=== PATIENT | female | born 1940 | race Native Hawaiian/Other Pacific Islander ===

== ENCOUNTER 2017-03-21 14:15 | Outpatient (CLI) | payer OTHER ==
[~2017-03-21 14:15] MED LIST: HYDROCHLOROT12.5 M1; HYDROCHLOROT12.5 M1 PO; LISI10TA11 PO; PRAVACHOL80 MG PO; RANI150T78 PO; Z-PAK PO
== END 2017-03-21 21:03 | disposition home or self-care (01) ==
LOC: LABW 14:15
DX: M81.0 Age-related osteoporosis without current pathological fracture (principal)
CPT/HCPCS: 36415; 82310

== ENCOUNTER 2017-03-25 14:04 | Outpatient (CLI) | payer OTHER ==
[~2017-03-25] VITALS: Ht 149.9 cm; Wt 68.0 kg
== END 2017-03-25 19:31 | disposition home or self-care (01) ==
LOC: INF 14:04
DX: M81.0 Age-related osteoporosis without current pathological fracture (principal)
CPT/HCPCS: 96372; J0897

== ENCOUNTER 2018-06-30 08:30 | Outpatient (CLI) | payer OTHER ==
[~2018-06-30] VITALS: Ht 149.9 cm; Wt 66.2 kg
[2018-06-30 08:44] VITALS: BP 122/82; TEMP 98.6
== END 2018-06-30 21:58 | disposition home or self-care (01) ==
LOC: INF 08:30
DX: M81.0 Age-related osteoporosis without current pathological fracture (principal)
CPT/HCPCS: 36415; 82310; 96372; J0897

== ENCOUNTER 2019-01-05 10:47 | Outpatient (CLI) | payer OTHER | END 2019-01-05 20:53 | disposition home or self-care (01) | LOC: LABW 10:47 | DX: Z79.01 Long term (current) use of anticoagulants (principal) | CPT/HCPCS: 36415; 85610 ==

== ENCOUNTER 2019-01-26 09:28 | Outpatient (CLI) | payer OTHER ==
[~2019-01-26] VITALS: Ht 149.9 cm; Wt 66.2 kg
[2019-01-26 09:58] VITALS: BP 127/74; TEMP 98
== END 2019-01-26 10:36 | disposition home or self-care (01) ==
LOC: LAB 09:28 → INF 09:28 → LABW 09:28 → INF 10:36
DX: M80.00XA Age-related osteoporosis with current pathological fracture, unspecified site, initial encounter for fracture (principal)
CPT/HCPCS: 36415; 82310; 96372; J0897

== ENCOUNTER 2019-08-13 08:22 | Outpatient (CLI) | payer OTHER | END 2019-08-13 21:48 | disposition home or self-care (01) | LOC: LABW 08:22 | DX: M81.0 Age-related osteoporosis without current pathological fracture (principal) | CPT/HCPCS: 36415; 82310 ==

== ENCOUNTER 2019-08-18 08:37 | Outpatient (CLI) | payer OTHER ==
[~2019-08-18] VITALS: Ht 149.9 cm; Wt 65.3 kg
[2019-08-18 08:40] VITALS: BP 127/67; TEMP 97.9
== END 2019-08-18 09:30 | disposition home or self-care (01) ==
LOC: INF 08:37
DX: M81.0 Age-related osteoporosis without current pathological fracture (principal)
CPT/HCPCS: 96372; J0897

== ENCOUNTER 2019-11-02 12:48 | Outpatient (CLI) | payer OTHER | END 2019-11-02 20:46 | disposition home or self-care (01) | LOC: LABW 12:48 | DX: R50.9 Fever, unspecified (principal) | CPT/HCPCS: 87502 ==

== ENCOUNTER 2020-02-10 10:09 | Outpatient (CLI) | payer OTHER | END 2020-02-10 22:30 | disposition home or self-care (01) | LOC: LABW 10:09 | DX: R50.9 Fever, unspecified (principal) | CPT/HCPCS: 87502 ==

== ENCOUNTER 2020-06-07 09:09 | Outpatient (CLI) | payer OTHER ==
[~2020-06-07] VITALS: Ht 149.9 cm; Wt 65.3 kg
[2020-06-07 09:40] VITALS: BP 129/66; TEMP 97.9
== END 2020-06-07 10:35 | disposition home or self-care (01) ==
LOC: INF 09:09
DX: M81.0 Age-related osteoporosis without current pathological fracture (principal)
CPT/HCPCS: 36415; 82310; 96372; J0897

== ENCOUNTER 2020-06-25 13:30 | Inpatient (IN) | payer OTHER ==
[~2020-06-25] VITALS: Ht 149.9 cm; Wt 66.9 kg
[2020-06-25 15:05] VITALS: BP 105/59; TEMP 99; Ht 149.9 cm; Wt 66.9 kg
[2020-06-25 15:44] LABS: PLATELET COUNT 165 K/uL (152-353)
[2020-06-25 15:48] LABS: POTASSIUM 3.8 mmol/L (3.6-5.2)
[2020-06-25 20:00] VITALS: BP 113/56; TEMP 99.3
[2020-06-25 22:00] VITALS: BP 113/56; TEMP 99.3
[2020-06-26] VITALS: BP 100/54; TEMP 98.5
[2020-06-26 04:00] VITALS: BP 83/62; TEMP 98.1
[2020-06-26 05:10] LABS: PLATELET COUNT 133 K/uL (152-353)
[2020-06-26 05:48] LABS: POTASSIUM 3.8 mmol/L (3.6-5.2)
[2020-06-26 08:00] VITALS: BP 117/56; TEMP 98.6
[2020-06-26 12:00] VITALS: BP 117/56; TEMP 98.2
[2020-06-26 16:00] VITALS: BP 98/52; TEMP 98.5
[2020-06-26 20:00] VITALS: BP 140/67; TEMP 98.7
[2020-06-27] VITALS (7 sets, daily range): BP systolic 98–135; BP diastolic 50–73; TEMP 97.9–99.7
[2020-06-27 05:27] LABS: PLATELET COUNT 131 K/uL (152-353)
[2020-06-27 06:02] LABS: POTASSIUM 3.6 mmol/L (3.6-5.2)
[2020-06-28 03:47] VITALS: BP 112/71; TEMP 98.1
[2020-06-28 06:49] LABS: PLATELET COUNT 119 K/uL (152-353)
[2020-06-28 07:06] LABS: POTASSIUM 3.7 mmol/L (3.6-5.2)
[2020-06-28 08:00] VITALS: BP 120/56; TEMP 98.1
[2020-06-28 12:00] VITALS: BP 100/58; TEMP 98.3
[2020-06-28] MEDS ORDERED: TRICOR145 M1 PO (12:01)
[2020-06-28] MEDS ORDERED: CARTIA XT120 MG PO (12:23)
[2020-06-28] MEDS ORDERED: METH5TAB6 PO (12:25)
[2020-06-28] MEDS ORDERED: JANTOVEN5 MG PO (12:27)
[2020-06-28 16:00] VITALS: BP 139/72; TEMP 97.7
[2020-06-28 20:00] VITALS: BP 129/59; TEMP 97.9
[2020-06-29 00:25] VITALS: BP 137/61; TEMP 97.7
[2020-06-29 03:57] VITALS: BP 140/68; TEMP 97.8
[2020-06-29 06:33] LABS: PLATELET COUNT 127 K/uL (152-353)
[2020-06-29 06:44] LABS: POTASSIUM 3.8 mmol/L (3.6-5.2)
[2020-06-29 07:52] VITALS: BP 131/54; TEMP 98.8
[2020-06-29 12:00] VITALS: BP 136/61; TEMP 98.7
[2020-06-29 16:00] VITALS: BP 126/75; TEMP 98.6
[2020-06-29 20:00] VITALS: BP 134/80; TEMP 98.1
[2020-06-30] VITALS (7 sets, daily range): BP systolic 127–149; BP diastolic 57–78; TEMP 98.1–99.1
[2020-06-30 05:36] LABS: POTASSIUM 4.2 mmol/L (3.6-5.2)
[2020-06-30 05:46] LABS: PLATELET COUNT 117 K/uL (152-353)
[2020-07-01 04:00] VITALS: BP 115/58; TEMP 98.8
[2020-07-01 05:13] LABS: POTASSIUM 4.1 mmol/L (3.6-5.2)
[2020-07-01 05:25] LABS: PLATELET COUNT 115 K/uL (152-353)
[2020-07-01 08:00] VITALS: BP 136/67; TEMP 98.5
[2020-07-01 12:00] VITALS: BP 127/61; TEMP 99.3
[2020-07-01 16:00] VITALS: BP 139/71; TEMP 99.2
== END 2020-07-01 18:08 | disposition home or self-care (01) | DRG 177 ==
LOC: MED/SURG 13:30
PROVIDERS: ADMIT Family Medicine
DX: U07.1 COVID-19 (principal); J18.8 Other pneumonia, unspecified organism; E86.0 Dehydration; R42 Dizziness and giddiness; I95.1 Orthostatic hypotension; Z79.01 Long term (current) use of anticoagulants; I10 Essential (primary) hypertension; E78.2 Mixed hyperlipidemia; E05.90 Thyrotoxicosis, unspecified without thyrotoxic crisis or storm; K21.9 Gastro-esophageal reflux disease without esophagitis; D64.89 Other specified anemias; E87.8 Other disorders of electrolyte and fluid balance, not elsewhere classified
CPT/HCPCS: 36415; 80053; 81000; 83735; 84100; 84436; 84443; 84481; 85027; 85379; 85610; 86140; 87040; 93005; 94667; 94668; 94760; J0456; J0610; J0696; J1885; J2405; J3475; J3480

== ENCOUNTER 2020-07-11 09:05 | Outpatient (CLI) | payer OTHER ==
[~2020-07-11 09:05] MED LIST changes: +CARTIA XT120 MG PO; +JANTOVEN5 MG PO; +METH5TAB6 PO; +TRICOR145 M1 PO
== END 2020-07-11 19:15 | disposition home or self-care (01) ==
LOC: LABW 09:05
DX: E05.80 Other thyrotoxicosis without thyrotoxic crisis or storm (principal); E04.1 Nontoxic single thyroid nodule; I10 Essential (primary) hypertension; E78.49 Other hyperlipidemia
CPT/HCPCS: 36415; 84439; 84443; 84445; 84480; 86376

== ENCOUNTER 2020-12-28 11:29 | Outpatient (CLI) | payer OTHER ==
[~2020-12-28] VITALS: Ht 149.9 cm; Wt 65.3 kg
[2020-12-28 12:55] VITALS: BP 133/58; TEMP 97.9
== END 2020-12-28 13:54 | disposition home or self-care (01) ==
LOC: INF 11:29
PROVIDERS: ATTEND Internal Medicine Endocrinology, Diabetes & Metabolism
DX: M81.0 Age-related osteoporosis without current pathological fracture (principal)
CPT/HCPCS: 36415; 82310; 96372; J0897

== ENCOUNTER 2021-06-28 08:11 | Outpatient (CLI) | payer OTHER | END 2021-06-28 23:26 | disposition home or self-care (01) | LOC: US 08:11 | PROVIDERS: ATTEND Family Medicine | DX: K21.9 Gastro-esophageal reflux disease without esophagitis (principal) ==

== ENCOUNTER 2021-07-19 07:34 | Outpatient (CLI) | payer OTHER | END 2021-07-19 21:05 | disposition home or self-care (01) | LOC: INF 07:34 | PROVIDERS: ATTEND Family Medicine | DX: M81.0 Age-related osteoporosis without current pathological fracture (principal) | CPT/HCPCS: 36415; 82310; 96372 ==

== ENCOUNTER 2021-08-02 18:14 | Emergency (ER) | payer OTHER ==
[~2021-08-02] VITALS: Ht 149.9 cm; Wt 67.1 kg
[2021-08-02 18:21] VITALS: BP 170/76; TEMP 97.6
== END 2021-08-02 19:36 | disposition home or self-care (01) ==
LOC: ED 18:14
DX: S32.131A Minimally displaced Zone III fracture of sacrum, initial encounter for closed fracture (principal); R51.9 Headache, unspecified; Z98.890 Other specified postprocedural states; W01.198A Fall on same level from slipping, tripping and stumbling with subsequent striking against other object, initial encounter; Y92.89 Other specified places as the place of occurrence of the external cause
CPT/HCPCS: 99283

== ENCOUNTER 2021-10-09 12:47 | Outpatient (CLI) | payer OTHER | END 2021-10-09 20:25 | disposition home or self-care (01) | LOC: RAD 12:47 | PROVIDERS: ATTEND Physician Assistant | DX: M25.562 Pain in left knee (principal) ==

== ENCOUNTER 2022-01-03 10:20 | Outpatient (CLI) | payer OTHER | END 2022-01-03 19:36 | disposition home or self-care (01) | LOC: RAD 10:20 | PROVIDERS: ATTEND Internal Medicine Sleep Medicine | DX: J44.9 Chronic obstructive pulmonary disease, unspecified (principal) ==

== ENCOUNTER 2022-02-26 09:49 | Outpatient (CLI) | payer OTHER | END 2022-02-26 18:55 | disposition home or self-care (01) | LOC: US 09:49 → RESP 09:49 → US 10:30 | PROVIDERS: ATTEND Nurse Practitioner Family | DX: R06.09 Other forms of dyspnea (principal); I10 Essential (primary) hypertension ==

== ENCOUNTER 2022-04-02 08:19 | Outpatient (CLI) | payer OTHER | END 2022-04-02 18:53 | disposition home or self-care (01) | LOC: CT 08:19 | PROVIDERS: ATTEND Nurse Practitioner Family | DX: I65.29 Occlusion and stenosis of unspecified carotid artery (principal) | CPT/HCPCS: 36415; 82565; 84520; Q9963 ==

== ENCOUNTER 2022-09-25 10:15 | Outpatient (CLI) | payer OTHER | END 2022-09-25 18:55 | disposition home or self-care (01) | LOC: RAD 10:15 | PROVIDERS: ATTEND Physician Assistant | DX: M25.562 Pain in left knee (principal) ==

== ENCOUNTER 2022-12-25 13:35 | Outpatient (CLI) | payer OTHER | END 2022-12-25 19:43 | disposition home or self-care (01) | LOC: MAMMO 13:35 | PROVIDERS: ATTEND Internal Medicine | DX: Z12.31 Encounter for screening mammogram for malignant neoplasm of breast (principal) ==

== ENCOUNTER 2023-01-22 15:00 | Inpatient (IN) | payer OTHER ==
[2023-01-24 21:38] LABS: PLATELET COUNT 186 K/uL (152-353)
[2023-01-24 22:02] LABS: POTASSIUM 4.2 mmol/L (3.6-5.2)
== END 2023-01-30 12:04 | disposition still patient (30) ==
LOC: PAVB 15:00
PROVIDERS: ADMIT Family Medicine; ATTEND Family Medicine
DX: I63.9 Cerebral infarction, unspecified (principal); M62.81 Muscle weakness (generalized); R26.81 Unsteadiness on feet; R27.9 Unspecified lack of coordination; Z74.1 Need for assistance with personal care
CPT/HCPCS: 80053; 83880; 85027; 85379; 85610; 87081; 87502

== ENCOUNTER 2023-01-25 11:12 | Outpatient (CLI) | payer OTHER | END 2023-01-25 18:56 | disposition home or self-care (01) | LOC: US 11:12 | PROVIDERS: ATTEND Family Medicine | DX: R60.0 Localized edema (principal) ==

== ENCOUNTER 2023-09-06 10:36 | Outpatient (CLI) | payer OTHER ==
[~2023-09-06] VITALS: Ht 165.1 cm; Wt 68.0 kg
[2023-09-06 11:51] VITALS: BP 160/83; TEMP 97.8
== END 2023-09-06 19:02 | disposition home or self-care (01) ==
LOC: INF 10:36
PROVIDERS: ATTEND Internal Medicine
DX: M81.8 Other osteoporosis without current pathological fracture (principal)
CPT/HCPCS: 36415; 36591; 82310; 96372; J0897